=== PATIENT | male | born 2005 | race Caucasian/White ===

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

== ENCOUNTER 2024-10-17 04:29 | Emergency (ER) | payer MEDICAID, SELFPAY ==
--- NOTE | 2024-10-17 | ECG_ITS ---
Test Reason : CP Blood Pressure : */* mmHG Vent. Rate : 78 BPM Atrial Rate : 78 BPM P-R Int : 126 ms QRS Dur : 80 ms QT Int : 330 ms P-R-T Axes : 69 76 70 degrees QTcB Int : 376 ms Sinus rhythm with marked sinus arrhythmia Otherwise normal ECG No previous ECGs available Referred By: Generic ED Physician Electronically Signed By: LUIS CARLOS NIETO MD
--- NOTE | ~2024-10-17 | XR_ITS ---
CLINICAL HISTORY: chest pain 1 view chest x-ray Comparison: None Findings: No consolidation or effusion. Normal size heart. No acute fracture. IMPRESSION: 1. No acute findings. This document has been electronically signed by: Saud Lopes MD on 10/17/2024 05:45:42
[2024-10-17 04:34] VITALS: BP 119/42; BP 128/92; PULSE 84; PULSE 88; RESP 20; TEMP 36.7; O2SAT 100; O2SAT 98; BMI 17.9
[2024-10-17 04:45] LABS: Basophils Absolute Auto 0.1 X10*3/uL (0.0-0.2); Basophils Percent Auto 0.9 % (0-2); Eosinophils Absolute Auto 0.3 X10*3/uL (0.0-0.4); Eosinophils Percent Auto 4.4 % (0-4); Hematocrit 40.1 % (42.0-52.0); Hemoglobin 13.3 g/dl (14.0-18.0); Imm Gran Abs Auto 0.01 X10*3/uL (0.00-0.03); Imm Gran Pct Auto 0.2 % (0.0-0.4); Lymphocytes Absolute Auto 2.6 X10*3/uL (1.2-4.9); Lymphocytes Percent Auto 41.2 % (20-40); MANUAL DIFF FLAG NO; Mean Corpuscular HGB Conc 33.2 g/dl (31.0-36.0); Mean Corpuscular Hemoglobin 27.1 pg (27.0-33.0); Mean Corpuscular Volume 81.7 fL (80.0-98.0); Mean Platelet Volume 10.8 fL (9.4-12.4); Monocytes Absolute Auto 0.6 X10*3/uL (0.1-1.2); Neutrophils Absolute Auto 2.8 x10*3/uL (2.0-8.3); Neutrophils Percent Auto 44.3 % (45-73); Platelet Count 256 X10*3/uL (160-400); Red Blood Count 4.91 X10*6/uL (4.60-5.80); Red Cell Distribution Width 13.7 % (11.0-16.0); White Blood Count 6.3 X10*3/uL (4.8-10.8)
--- NOTE | 2024-10-17 04:45 | ED_ITS ---
HPI - Chest Pain General Chief Complaint: Chest Pain Stated Complaint: CHEST PAIN Time Seen by Provider: 10/17/24 04:45 Source: patient Mode of arrival: EMS Limitations: no limitations History of Present Illness ED Provider: Dr. Kp Cruz HPI narrative: 19-year-old male with history of asthma who presents emergency department for evaluation of left-sided chest pain. Patient states he has been having intermittent left-sided chest pain over the last 2 days. He states that he gets 1-2 episodes per day. He states that the pain will last about 1 hour. 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 The patient states that this morning at 02:00 hours he was awoken from sleep with left-sided chest pain. He states that the pain was a sharp pain which lasted at least an hour. At the time my evaluation, the pain is resolved. Patient states that he has been having a lot of anxiety and stress mainly around thinking about his future plans. He denied fever, chills, cough, nausea, vomiting, neck, jaw, arm pain. Related Data Home Medications ?Medication ?Instructions ?Recorded ?Confirmed No Known Home Meds 10/25/22 10/25/22 Allergies Allergy/AdvReac Type Severity Reaction Status Date / Time No Known Allergies Allergy Verified 10/17/24 04:35 Review of Systems 2 Review of Systems: Yes all other systems are reviewed and are negative [facility] Past Medical History [facility] Narrative: Social history: The patient denies tobacco use. He occasionally drinks alcohol. The patient does smoke marijuana daily 2-3 pipe bowls per day Social History Social History Alcohol intake: never Smoked in Last 30 Days: No Use of substances other than those prescribed or required for medical reasons: Yes Substance Use Type: Marijuana Substance Use Frequency: Daily Advance Directives: No Advance Directives Information Provided: Yes Do you have a plan to hurt others: No Plan Current occupational status: unemployed Current occupation: right hand dominant Physical Exam 2 Vital Signs: Vital Signs: Last Vital Signs Temp 98.0 F 10/17/24 04:34 Pulse 88 10/17/24 04:34 Resp 20 10/17/24 04:34 BP 128/92 H 10/17/24 04:34 Pulse Ox 100 10/17/24 04:34 O2 Del Method Room Air 10/17/24 04:34 BMI result Body Mass Index 17.9 Vital signs were unremarkable Exam: General: Awake, alert in no distress, weight 59.8 kg, low BMI 17.9 kg per m2 Head: Normocephalic, atraumatic EENT: PERRL, Lids normal, sclera normal, conjunctiva normal, nose normal , ears normal, throat without erythema or exudates Neck: Supple, no adenopathy Lung: breath sounds symmetric, no wheezing, rales or rhonchi Chest: symmetric movement, nontender Heart: regular rate and rhythm, normal S1, S2 no murmurs or rubs Abdomen: soft, non-tender, nondistended, normal bowel sounds Back: no vertebral tenderness, no CVAT Extremities: no deformities, moves all extremities symmetrically Neuro: Awake, alert, oriented, normal speech, cranial nerves intact, moves all extremities symmetrically Psych: Pleasant, cooperative Medical Decision Making Medical Decision Making MDM Narrative: 19-year-old male with history of asthma who presents emergency department for evaluation of left-sided chest pain x2 days. Patient was states that the pain comes on mainly at work and will last 1 hour. He gets 1-2 episodes per day. The patient states that he had an episode of chest pain at 02:00 hours that woke him up from work. Patient states that he was under increased stress in his having anxiety. Vital signs were normal. Physical examination was unremarkable Differential diagnosis: ?Includes but is not limited to myocardial infarction, myocardial ischemia, pneumothorax, musculoskeletal pain, costochondritis, anxiety Course: 06:19 My interpretation patient's laboratory evaluation is as follows: CBC was normal. CMP was normal. High sensitive troponin I was below detectable limits. COVID-19, influenza and RSV tests were negative. Chest x-ray revealed no acute disease. Twelve EKG was unremarkable. At this time I do not think that the patient's pain is secondary to cardiac disease in his more consistent with musculoskeletal pain. I did discuss this with the patient. Patient was advised to take Tylenol and ibuprofen for pain. He was given printed and verbal instructions and discharged home. Admission/Observation Consideration of admission/observation: Escalation of care including admission/observation considered (Yes) Lab Data [facility] Lab Attestation statement: I reviewed the patient's lab results. 10/17/24 04:40 10/17/24 04:40 Labs: Lab Results 10/17/24 Range/Units 04:40 WBC 6.3 (4.8-10.8) X10*3/uL RBC 4.91 (4.60-5.80) X10*6/uL Hgb 13.3 L (14.0-18.0) g/dl Hct 40.1 L (42.0-52.0) % MCV 81.7 (80.0-98.0) fL MCH 27.1 (27.0-33.0) pg MCHC 33.2 (31.0-36.0) g/dl RDW 13.7 (11.0-16.0) % Plt Count 256 (160-400) X10*3/uL MPV 10.8 (9.4-12.4) fL Immature Gran % (Auto) 0.2 (0.0-0.4) % Neut % (Auto) 44.3 L (45-73) % Lymph % (Auto) 41.2 H (20-40) % Pitkin % (Auto) 9.0 (2-11) % Eos % (Auto) 4.4 H (0-4) % Baso % (Auto) 0.9 (0-2) % Lymph # (Auto) 2.6 (1.2-4.9) X10*3/uL Pitkin # (Auto) 0.6 (0.1-1.2) X10*3/uL Eos # (Auto) 0.3 (0.0-0.4) X10*3/uL Baso # (Auto) 0.1 (0.0-0.2) X10*3/uL Abs Immat Gran (auto) 0.01 (0.00-0.03) X10*3/uL Absolute Neuts (auto) 2.8 (2.0-8.3) x10*3/uL Absolute Nucleated RBC 0.000 (0.0-0.012) X10*3/uL Nucleated RBC % (auto) 0.0 (0.0-0.2) /100WBC Sodium 139 (135-145) mmol/L Potassium 4.4 (3.3-5.1) mmol/L Chloride 110 H (96-108) mmol/L Carbon Dioxide 24 (22-29) mmol/L Anion Gap 9 L (12-20) BUN 15 (9-16) mg/dL Creatinine 0.74 (0.5-1.4) mg/dL Estim Creat Clear Calc 134.6 Estimated GFR > 60 Random Glucose 113 (60-115) mg/dL Calcium 9.0 (8.4-10.2) mg/dL Total Bilirubin 0.5 (0.0-1.0) mg/dL AST 33 (5-37) U/L ALT 18 (0-40) U/L Alkaline Phosphatase 72 (39-117) U/L Troponin I High Sens < 2.7 (<3.5-35.0) ng/L Total Protein 6.8 (6.5-8.0) g/dL Albumin 4.2 (3.5-5.0) g/dL Influenza Type A (PCR) NEGATIVE (Negative) Influenza Type B (PCR) NEGATIVE (Negative) RSV RNA Qual (PCR) NEGATIVE (Negative) SARS-CoV-2 RNA (RT-PCR) NEGATIVE (Negative) Independent Interpretation I performed an independent interpretation of an: EKG and Plain X-Ray Interpretation: My independent interpretation patient's 12 EKG done on 10/17/2024 at 04:34 hours is as follows: Normal sinus rhythm with a rate of 78, normal NC interval, QRS duration QTC interval, no ST segment elevation, no ST segment depression, inverted T-wave in lead 3. My independent interpretation patient's one-view chest x-ray is as follows: No acute disease, no pneumothorax, no infiltrate Radiology Impression Discussion of test interpretation with radiology: I have reviewed the radiologist's reading. Radiologist Impression: 1 view chest x-ray Comparison: None Findings: No consolidation or effusion. Normal size heart. No acute fracture. IMPRESSION: 1. No acute findings. This document has been electronically signed by: Saud Lopes MD on 10/17/2024 05:45:42 Discharge Plan Discharge Clinical Impression: Acute costochondritis Patient Disposition: Home, Self-Care Instructions: Costochondritis (ED) Additional Instructions: Your EKG was normal. Your chest x-ray did not reveal any significant abnormalities that are causing your pain which is reassuring. You had a complete blood count and comprehensive metabolic panel which was normal. Your high sensitive troponin I (a marker of heart damage/heart attack) was below detectable limits which is very reassuring suggesting that the pain that your experience today it was not coming from your heart. Your pain is most likely caused by inflammation of the joints of your chest (costochondritis). Take ibuprofen 200 mg pills, 2 pills every 6 hours (3 times a day) for the next 3-4 days and this should improve your pain. You did tell me that you are having increased stress and anxiety, sometimes it does help to talk to a therapist about your problems. Please considered calling the [facility] and make an appointment to talk to a therapist. [address] [phone] If it in the time you think you are going to hurt yourself or feel like you are going to hurt anyone else then you can call the National Suicide and Crisis Lifeline can be reached 7 days a week 24 hours a day.? Call 988 to speak with someone.? Return for any worsening symptoms or concerns such as thoughts of self harm or harm to others. Please call 911 if you feel your mental health is worsening.? Prescriptions: No Action No Known Home Meds Print Language: Estonian
--- NOTE | 2024-10-17 04:48 | PC.NURSE ---
pt biba from home, a&ox4, respirations even and unlabored. pt reports he was woken out of his sleep with sudden sharp chest pain. pt reports this has been intermittent for 2 days and reports it worsens with movement. pt denies sob. pt vss, ekg obtained, labs sent. provider at bedside. nsr on tele.
[2024-10-17 05:02] LABS: Alanine Aminotransferase 18 U/L (0-40); Albumin Level 4.2 g/dL (3.5-5.0); Alkaline Phosphatase 72 U/L (39-117); Anion Gap 9 (12-20); Aspartate Amino Transferase 33 U/L (5-37); Bilirubin Total 0.5 mg/dL (0.0-1.0); Blood Urea Nitrogen 15 mg/dL (9-16); Carbon Dioxide 24 mmol/L (22-29); Chloride 110 mmol/L (96-108); Creatinine Clr Calc Pharmacy 134.6; Estimated Glomerular Filt Rate > 60; Glucose Random 113 mg/dL (60-115); Potassium 4.4 mmol/L (3.3-5.1); Sodium 139 mmol/L (135-145); Total Protein 6.8 g/dL (6.5-8.0)
[2024-10-17 05:14] LABS: Troponin-I High Sensitivity < 2.7 ng/L (<3.5-35.0)
[2024-10-17 05:22] LABS: Influenza A PCR NEGATIVE (Negative); Influenza B PCR NEGATIVE (Negative); Resp Syncy Virus RNA Qual PCR NEGATIVE (Negative); SARS COV2 PCR INHOUSE NEGATIVE (Negative)
[2024-10-17 06:34] VITALS: BP 132/78; PULSE 88; RESP 15; TEMP 36.8; O2SAT 99
== END 2024-10-17 06:34 | disposition home or self-care (01) ==
PROVIDERS: Emergency Provider Emergency Medicine Emergency Medical Services
DX: M94.0 Chondrocostal junction syndrome [Tietze] (principal); R07.9 Chest pain, unspecified; Z03.818 Encounter for observation for suspected exposure to other biological agents ruled out
CPT/HCPCS: 0241U; 36415; 71045; 80053; 84484; 85025; 93005; 99283; 99285

== ENCOUNTER → 2024-10-17 04:34 | Outpatient (BNV) | payer SELFPAY | PROVIDERS: Emergency Provider Emergency Medicine Emergency Medical Services; Visit Provider Internal Medicine Cardiovascular Disease | DX: R07.9 Chest pain, unspecified (principal) | CPT/HCPCS: 93010 ==

== ENCOUNTER → 2024-10-17 04:45 | Outpatient (BNV) | payer SELFPAY | PROVIDERS: Emergency Provider Emergency Medicine Emergency Medical Services; Visit Provider Radiology Diagnostic Radiology | DX: R07.9 Chest pain, unspecified (principal) | CPT/HCPCS: 71045 ==